=== PATIENT | female | born 1985 | race Caucasian/White ===

== ENCOUNTER → 2024-12-05 | Outpatient (CLI) | payer BC, SELFPAY | END | disposition home or self-care (01) | PROVIDERS: Visit Provider Family Medicine | DX: R09.82 Postnasal drip (principal) | CPT/HCPCS: 36415 ==

== ENCOUNTER → 2024-12-17 | Outpatient (CLI) | payer BC, SELFPAY | END | disposition home or self-care (01) | LOC: LABSPEC 15:30 | PROVIDERS: Visit Provider Family Medicine | DX: R09.82 Postnasal drip (principal) | CPT/HCPCS: 87506 ==

== ENCOUNTER → 2025-01-02 | Outpatient (CLI) | payer BC, OTHER, SELFPAY ==
--- NOTE | 2025-01-02 12:39 | MRI_ITS ---
PROCEDURE: BRAIN WITHOUT CONTRAST 01/02/2025 REASON FOR EXAM: ABNORMAL CT BRAIN TECHNIQUE: Procedure Code: MRIBR Modality: MR Procedure: BRAIN WITHOUT CONTRAST Multiplanar and multisequence images were obtained. COMPARISON: None. FINDINGS: The brain parenchyma appears unremarkable. The dixon-white matter differentiation is appropriate. The ventricles are normal in size and configuration. No midline shift. The midline structures are intact, specifically the corpus callosum, septum pellucidum, pituitary gland, and cerebellar vermis. The cervicomedullary junction appears unremarkable. The paranasal sinuses and mastoid air cells are clear. Diffusion-weighted images demonstrate no restricted diffusion. MRI/Brain without Contrast IMPRESSION: Unremarkable MRI of the brain without contrast. Reading Location: [id number]
== END | disposition home or self-care (01) ==
PROVIDERS: PCP Family Medicine; Referring Provider Family Medicine; Visit Provider Family Medicine
DX: R90.89 Other abnormal findings on diagnostic imaging of central nervous system (principal)
CPT/HCPCS: 70551